=== PATIENT | female | born 1955 | race Caucasian/White ===

== ENCOUNTER 2020-09-01 21:38 | Inpatient (IN) ==
[2020-09-01] MEDS ORDERED: DEXAMETHASONE SODIUM PHOSP/PF 10 MG/ML VIAL IV ONE (21:58)
[2020-09-01] MEDS ORDERED: cefTRIAXone SODIUM 1,000 MG/100 ML BAG IV ONE (22:02)
[2020-09-01] MEDS ORDERED: ACETAMINOPHEN 325 MG TABLET PO ONE (22:05)
--- NOTE | 2020-09-01 22:13 | ERNOTE ---
Dyspnea - Date Date of Service: 09/01/20 - General Presenting Symptoms: shortness of breath Time Seen by Provider: 09/01/20 21:49 Source: patient, EMS Exam Limitations: no limitations - Immun/Allergies/Home Medications Immunizations: IMMUNIZATION HX Immunizations Up to Date Yes History of Influenza Vaccine Yes Hx Pneumococcal Vaccination Yes Allergies/Adverse Reactions: Allergies No Known Allergies Allergy (Verified 09/01/20 21:48) Home Medications: HOME MEDICATIONS B-complex with vitamin C 1 cap PO DAILY 08/04/18 [Last Taken Unknown] acyclovir 400 mg tablet 400 mg PO BID 08/04/18 [Last Taken 11/22/18] cholecalciferol (vitamin D3) 25 mcg (1,000 unit) capsule 1,000 unit PO DAILY 08/04/18 [Last Taken 11/22/18] cyanocobalamin (vitamin B-12) 1,000 mcg capsule 1,000 mcg PO DAILY 08/04/18 [Last Taken 11/22/18] magnesium oxide 500 mg PO DAILY tab 08/04/18 [Last Taken 11/22/18] fenofibrate 160 mg tablet 160 mg PO DAILY #90 tab 06/22/20 [Last Taken Unknown] insulin aspart U-100 100 unit/mL (3 mL) subcutaneous pen See Rx Instructions SUBCUT AC #15 ml 08/10/20 [Last Taken Unknown] insulin glargine 100 unit/mL (3 mL) subcutaneous pen 30 unit SUBCUT BID #15 ml 08/10/20 [Last Taken Unknown] levothyroxine 50 mcg capsule 50 mcg PO DAILY #30 cap 08/10/20 [Last Taken Unknown] lisinopril 40 mg tablet 40 mg PO BID #180 tab 08/10/20 [Last Taken Unknown] apixaban 2.5 mg tablet 2.5 mg PO BID tab 08/24/20 [Last Taken Unknown] lenalidomide 15 mg capsule 15 mg PO DAILY 08/24/20 [Last Taken Unknown] metformin 500 mg tablet 500 mg PO BID #180 tab 08/27/20 [Last Taken Unknown] Diltiazem HCl [Tiazac] 240 mg PO DAILY 09/02/20 [Last Taken Unknown] - History of Present Illness Narrative: Patient is a 65-year-old female that presents to the emergency department with a 1 week history of shortness of breath associated with hemoptysis. Patient tested Covid +1-week ago. Patient states her symptoms started the day prior to testing. Patient has history of diabetes, multiple myeloma, hypertension and currently is on apixaban. Date (Duration): 08/23/20 Severity: severe Treatment ROUTE DELIVERER: oxygen Initiating event: Reports: upper resp illness Frequency of episodes: Reports: no prior episodes Modifying Factors - (Improves): Reports: rest Modifying Factors (Worsens): Reports: lying down Associated Symptoms-Dyspnea: Reports: fever/chills, cough, weakness Review of Systems - Review of Systems Constitutional: Present: fever EYE: Present: no symptoms reported ENT: Present: no symptoms reported Respiratory: Present: shortness of breath, cough Cardiology: Present: no symptoms reported Gastrointestinal/Abdominal: Present: no symptoms reported Genitourinary: Present: no symptoms reported Musculoskeletal: Present: no symptoms reported Skin: Present: no symptoms reported Neurological: Present: no symptoms reported Endocrine: Present: no symptoms reported Hematologic/Lymphatic: Present: no symptoms reported Psych: Present: no symptoms reported All Other Systems: All systems neg except as marked Medical History (Last Reviewed 09/01/20 @ 22:06 by Caty Narayanan MD) HTN (hypertension) (Chronic) Onset Date: Unknown Hypercholesterolemia (Chronic) Onset Date: Unknown GERD (gastroesophageal reflux disease) (Chronic) Onset Date: Unknown Diabetes (Chronic) Onset Date: ~08/2006 Anxiety (Chronic) Onset Date: 10/02/11 Aphthous ulcer Onset Date: ~1999 Back pain Onset Date: Unknown Calcaneal fracture Onset Date: ~2000 Eczema Onset Date: Unknown Fatigue Onset Date: Unknown Glucose intolerance Onset Date: Unknown Headache Onset Date: Unknown Multiple myeloma Onset Date: Unknown Neck pain Onset Date: Unknown Proteinuria Onset Date: Unknown Surgical History: Surgical History (Last Reviewed 09/01/20 @ 22:06 by Caty Narayanan MD) History of bone marrow biopsy Onset Date: 06/09/17 History of breast biopsy Onset Date: 01/17/15 stereotactic bx left breast-fibrocystic changes. History of endometrial biopsy Onset Date: 09/01/06 [place] History of esophagogastroduodenoscopy (EGD) Onset Date: 03/01/19 03/01/19 Dr. Hess, [facility]-mild chronic inflammation, negative H.pylori. History of total abdominal hysterectomy and bilateral salpingo-oophorectomy Onset Date: 09/04/06 [place] Hx of cholecystectomy Onset Date: ~1975 open Hx of colonoscopy Onset Date: 03/01/19 08/06/07 [place]-normal. 11/23/18 [place]-diverticulosis, external hemorrhoids. Large ascending colon polyp, unable to remove. Refer to [facility]. 03/01/19 Dr. Hess, [facility]-tubulovillous adenoma, submucosal lipoma. Recheck 1 yr. Hx of tonsillectomy Onset Date: ~1970 Family History: Family History (Last Reviewed 09/01/20 @ 22:07 by Caty Narayanan MD) Mother , age 65-unsure of cause CVA (cerebral vascular accident) Diabetes Father , age 57-MD Myocardial infarction CAD (coronary artery disease) Hypertension Sister , age 59-renal cell ca Diabetes Cancer renal cell ca-dx age 59 Sister , age 65-COPD COPD (chronic obstructive pulmonary disease) Brother Alive and well 1 brother Heart disease 1 brother-bypass Uncle Cancer paternal-uncle Social History: (Last Reviewed 09/01/20 @ 22:07 by Caty Narayanan MD) Social History: Marital status: / lives independently: Yes household members: none number of children: 1 current occupational status: retired current occupation: homemaker since 2007; 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 Highest level of school completed/degree received: Associate degree: academi Service: No Tobacco: Smoking Status: Never smoker Alcohol: alcohol intake: former details: Some day - Occasionally Substance Use: substance use type: does not use Dietary Habits: caffeine: Yes caffeine comment: Every day - 60 oz pop/tea Personal Safety: victim of physical abuse: No victim of emotional abuse: No Physical Exam - Physical Exam General Appearance: Present: moderate distress Head Exam: Present: normal inspection Eye Exam: Normal inspection: bilateral, PERRL: bilateral, EOMI: bilateral Ears, Nose, Throat: Present: normal ENT inspection Neck: Present: normal inspection Respiratory: Present: respiratory distress, rales Cardiovascular/Chest: Present: regular rate, rhythm, no murmur, normal peripheral pulses Peripheral Pulses: N=norm/S=strong/W=weak/B=bound/A=absent: Radial (R): Normal, Radial (L): Normal, Dorsalis-pedis (R): Normal, Dorsalis-pedis (L): Normal Gastrointestinal/Abdominal: Present: normal bowel sounds, nontender Back Exam: Present: normal inspection Extremity Exam: Present: normal inspection Neurological Exam: Present: alert, oriented, normal mood/affect, no motor/sensory deficits Skin Exam: Present: normal color, warm/dry Lymphatic Exam: Present: no adenopathy Progress - Vital Signs Vital Signs: Vital Signs 09/01/20 21:42 Temperature 38.1 C H Pulse Rate 119 H Respiratory Rate 39 H Blood Pressure 155/75 H O2 Sat by Pulse Oximetry 74 L - EKG EKG #1 EKG read: Interp. by ma - EKG demonstrates sinus tachycardia with a rate of 103 with moderate intraventricular conduction delay no acute changes are appreciated. - X-Ray X-Ray #1 X-Ray: chest - Bilateral extensive fluffy infiltrates. Interpretation: Interp. by ma - CT/Ultrasound CT/Ultrasound Narrative: CT does not reveal a pulmonary embolus. Multifocal bilateral infiltrates are present. Mediastinal lymphadenopathy is noted. - Progress/Reassessment Chief Complaint: Dyspnea Progress:: Improved - Transition from high flow to CPAP Plan - Plan Plan: Patient tested positive for Covid 1 week ago. Patient has progressive shortness of breath and complains of coughing up blood. Patient states typically the blood is noted in the morning. Patient states over the last 2 days progressive worsening of shortness of breath. Patient presents per EMS. Patient requires O2 supplement per nasal cannula to maintain pulse ox of 90%. Blood cultures are obtained and patient is started on azithromycin and Rocephin. Decadron 10 mg IV is started. Pending chest x-ray, blood gases, troponin, D-dimer, CBC, chemistry, and lactic acid and BNP. Ferritin is pending D-dimer is elevated and CT rule out PE is obtained. BNP is greater than 3000 and troponin is elevated at 0.130. Patient is given Lasix 60 mg IV. initially considered BiPaP .however blood gases demonstrated normal PCO2. Patient placed on CPAP at 15 and O2 of 40%. Remdisivir criteria was reviewed with infectious disease and patient does not meet criteria by dates or O2 requirement. Patient is limited resuscitation and does not want to be intubated. Case is discussed with business integration analyst FP Dr. Sifuentes for admission. Troponin is unchanged. Initially 0.130 and repeat is 0.129. Lactic acid is 1.2. Patient is tolerating CPAP of 15 with O2 45%. Patient is alert and oriented and follows commands without difficulty. Patient is tolerating the CPAP without difficulty. Departure Clinical Impression: COVID-19 determined by clinical diagnostic criteria, CHF (congestive heart failure), History of diabetes mellitus, History of multiple myeloma, Anemia, Leukopenia - Departure Disposition: Short Term Hospital Inpatient Condition: Fair Referrals: Dudley Ramirez MD [Primary Care Provider] -
[2020-09-01] MEDS ORDERED: AZITHROMYCIN 500 MG in DEXTROSE 5 % IN WATER 250 ML IV ONE ×2 (22:30)
[2020-09-01 22:33] LABS: Hematocrit 32.5 % (37.0-47.0); Hemoglobin 10.9 gm/dL (12.5-16.0); Mean Cell Volume 101.6 fl (78-100); Mean Corpuscular Hemoglobin 34.1 pg (27-31); Mean Corpuscular Hgb Conc 33.5 g/dl (32-36); Mean Platelet Volume 10.5 fl (8-12.5); Platelet Count 135 K/mm3 (150-450); Red Cell Distribution Width 13.6 % (11.5-14.0); White Blood Count 2.7 K/mm3 (4.0-10.5)
[2020-09-01] MEDS ORDERED: NORMAL SALINE 500 ML IV ONE (22:38)
[2020-09-01 22:44] LABS: INR 1.16 INR (0.92-1.08)
[2020-09-01 22:45] LABS: Total Cells Counted 100
[2020-09-01 22:56] LABS: Atypical (Reactive) Lymph 7 % (0-2); Band 9 % (0-2.0); Lymphocyte 18 % (20-51); Monocyte 11 % (0-9); Neutrophil 55 % (42-75); Neutrophil # 1.5 K/mm3 (1.3-6.0); Platelet Estimate Normal (NORMAL); RBC Morphology Normal (NORMAL)
[2020-09-01 22:57] LABS: Albumin * 2.5 gm/dl (3.4-5.0); Anion Gap 16.4 mmol/L (6.8-13.8); BUN/Creatinine Ratio 16.1 (9.0-21.6); Bilirubin, Total 0.6 mg/dL (0.0-1.1); Calcium * 8.1 mg/dL (7.9-10.9); Carbon Dioxide 25.8 mmol/L (24-32.6); Potassium 4.2 mmol/L (3.4-4.6); Total Protein 6.6 gm/dL (6.2-8.2)
[2020-09-01 22:59] LABS: Troponin I 0.13 ng/mL (0.00-0.10)
[2020-09-01 23:06] LABS: Urine Bilirubin 3 mg/dl (NEGATIVE); Urine Blood Negative /ul (NEGATIVE); Urine Ketone 15 mg/dL (NEGATIVE); Urine Nitrite Negative (NEGATIVE); Urine Protein 100 mg/dL (NEGATIVE); Urine Specific Gravity 1.025 SP.GR. (1.005-1.010); Urine Urobilinogen Normal (NORMAL); Urine pH 5.5 pH (5.0-7.0)
[2020-09-01 23:09] LABS: Urine Appearance Clear (CLEAR); Urine Color Yellow
[2020-09-01 23:10] LABS: Urine Bacteria None Seen; Urine RBC None Seen /hpf (0-5); Urine WBC None Seen /hpf (0-5)
[2020-09-01] MEDS ORDERED: ONDANSETRON HCL/PF 2 MG/ML VIAL IV ONE (23:32)
[2020-09-01] MEDS ORDERED: ONDANSETRON HCL/PF 2 MG/ML VIAL ONE (23:33)
[2020-09-01] MEDS ORDERED: FUROSEMIDE 10 MG/ML VIAL IV ONE (23:50)
[2020-09-02] MEDS ORDERED: INSULIN REGULAR, HUMAN 100 UNITS/ML VIAL SC ONE ×2 (00:20→08:40)
[2020-09-02] MEDS ORDERED: INSULIN REGULAR, HUMAN 100 UNITS/ML VIAL IV ONE (00:46)
[2020-09-02] MEDS ORDERED: ENOXAPARIN SODIUM 40 MG/0.4 ML SYRG SC SCH (08:45)
[2020-09-02] MEDS ORDERED: ACETAMINOPHEN 325 MG TABLET PO PRN (08:46)
[2020-09-02] MEDS ORDERED: guaiFENesin/DEXTROMETHORPHAN SYRUP PO PRN (08:47)
[2020-09-02] MEDS: INSULIN GLARGINE,HUM.REC.ANLOG 100 UNITS/ML VIAL SC SCH ×2 (09:34→20:37)
[2020-09-02] MEDS: APIXABAN 2.5 MG TABLET PO SCH ×2 (09:35→20:28)
[2020-09-02] MEDS: FENOFIBRATE,MICRONIZED 134 MG CAPSULE PO SCH (09:36)
[2020-09-02] MEDS: metFORMIN HCL 500 MG TABLET PO SCH ×2 (09:36→17:20)
[2020-09-02] MEDS: DILTIAZEM HCL 240 MG CAP.SR.24H PO SCH (09:37)
[2020-09-02] MEDS: MAGNESIUM OXIDE 400 MG TABLET PO SCH (09:37)
[2020-09-02] MEDS: ACYCLOVIR 200 MG CAPSULE PO SCH ×2 (09:37→20:33)
[2020-09-02] MEDS: LEVOTHYROXINE SODIUM 50 MCG TABLET PO SCH (09:37)
[2020-09-02] MEDS: FUROSEMIDE 10 MG/ML VIAL IV SCH ×2 (09:38→20:30)
[2020-09-02] MEDS: LISINOPRIL 40 MG TABLET PO SCH ×2 (09:47→20:35)
[2020-09-02] MEDS: CYANOCOBALAMIN 1,000 MCG TABLET PO SCH (09:47)
[2020-09-02] MEDS: VITAMIN B COMP W-C 1 TAB TABLET PO SCH (09:47)
[2020-09-02] MEDS: CHOLECALCIFEROL 1,000 UNIT CAPSULE PO SCH (09:47)
[2020-09-02] MEDS: ALBUTEROL SULFATE/IPRATROPIUM 3 ML NEBU IH SCH ×4 (10:00→22:00)
[2020-09-02] MEDS: METHYLPREDNISOLONE SOD SUCC/PF 125 MG/2 ML VIAL IV SCH ×3 (10:41→20:36)
[2020-09-02] MEDS ORDERED: INSULIN LISPRO 100 UNITS/ML VIAL SC SCH (12:00)
--- NOTE | 2020-09-02 14:16 | HP ---
Chief Complaint - Chief Complaint Date of Service: 09/02/20 Time of Service: 13:59 Chief Complaint: I have trouble breathing History of Present Illness: 65-year-old female with past medical history of CHF, multiple myeloma, hypertension, obesity, hyperlipidemia, type 2 diabetes, was brought to the ER by EMS for evaluation of worsening dyspnea cough and hemoptysis of several days duration. The patient reports becoming ill about 8 days ago when she developed a cough and chest congestion, she progressively got worse and subsequently developed shortness of breath even at rest. Patient was tested for COVID-19 8 days ago and was placed in isolation at home for her to recuperate, however she became alarmed with her symptoms worsened and it became difficult for her to drive breath. Patient denies any history of respiratory issues or ever having similar symptoms in the past. Once in the ER she underwent a work-up that revealed an elevated BNP which would indicate a decompensation of her CHF, and she was also found to have elevated troponin which has now resolved. EKG was negative for any ischemic changes or signs of RI, and was only significant for sinus tachycardia. ACS was unlikely and the elevated troponin could be attributed to acute illness caused by the COVID-19 virus. The patient denies any chest pain or dizziness and says her biggest concern was her shortness of breath. Chest x-ray revealed diffuse pulmonary infiltrate and groundglass opacities which is common in COVID-19. The patient was placed on a nonrebreather mask but had to be upgraded to a BiPAP and subsequently a CPAP which she is tolerating currently without any issues. Once in the SCU ABG revealed improvement after she was treated with IV Lasix, breathing treatments, and IV steroids. We will keep the patient in the ICU for close monitoring and treatment for COVID-19 pneumonia. Given the duration of the patient's symptoms the patient did not qualify for remdesivir so we will treat her with other alternatives. She is currently on Eliquis per the orders of her oncologist who is treating her multiple myeloma, we will keep her on the medication during the hospitalization. Medical History (Last Reviewed 09/02/20 @ 02:26 by Aixa Gonzales RN) HTN (hypertension) (Chronic) Onset Date: Unknown Hypercholesterolemia (Chronic) Onset Date: Unknown GERD (gastroesophageal reflux disease) (Chronic) Onset Date: Unknown Diabetes (Chronic) Onset Date: ~08/2006 Anxiety (Chronic) Onset Date: 10/02/11 Aphthous ulcer Onset Date: ~1999 Back pain Onset Date: Unknown Calcaneal fracture Onset Date: ~2000 Eczema Onset Date: Unknown Fatigue Onset Date: Unknown Glucose intolerance Onset Date: Unknown Headache Onset Date: Unknown Multiple myeloma Onset Date: Unknown Neck pain Onset Date: Unknown Proteinuria Onset Date: Unknown Surgical History: Surgical History (Last Reviewed 09/02/20 @ 02:26 by Aixa Gonzales RN) History of bone marrow biopsy Onset Date: 06/09/17 History of breast biopsy Onset Date: 01/17/15 stereotactic bx left breast-fibrocystic changes. History of endometrial biopsy Onset Date: 09/01/06 [place] History of esophagogastroduodenoscopy (EGD) Onset Date: 03/01/19 03/01/19 Dr. Hess, [facility]-mild chronic inflammation, negative H.pylori. History of total abdominal hysterectomy and bilateral salpingo-oophorectomy Onset Date: 09/04/06 [place] Hx of cholecystectomy Onset Date: ~1975 open Hx of colonoscopy Onset Date: 03/01/19 08/06/07 [place]-normal. 11/23/18 [place]-diverticulosis, external hemorrhoids. Large ascending colon polyp, unable to remove. Refer to [facility]. 03/01/19 Dr. Hess, [facility]-tubulovillous adenoma, submucosal lipoma. Recheck 1 yr. Hx of tonsillectomy Onset Date: ~1970 Family History: Family History (Last Reviewed 09/02/20 @ 02:27 by Aixa Gonzales RN) Mother , age 65-unsure of cause CVA (cerebral vascular accident) Diabetes Father , age 57-[place] Myocardial infarction CAD (coronary artery disease) Hypertension Sister , age 59-renal cell ca Diabetes Cancer renal cell ca-dx age 59 Sister , age 65-COPD COPD (chronic obstructive pulmonary disease) Brother Alive and well 1 brother Heart disease 1 brother-bypass Uncle Cancer paternal-uncle Social History: (Last Reviewed 09/02/20 @ 02:28 by Aixa Gonzales RN) Social History: Marital status: / lives independently: Yes household members: none number of children: 1 current occupational status: retired current occupation: homemaker since 2007; 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 Highest level of school completed/degree received: Associate degree: academi Service: No Tobacco: Smoking Status: Never smoker Alcohol: alcohol intake: former details: Some day - Occasionally Substance Use: substance use type: does not use Dietary Habits: caffeine: Yes caffeine comment: Every day - 60 oz pop/tea Personal Safety: victim of physical abuse: No victim of emotional abuse: No Peds Patient Hx - Developmental: No Pertinent Hx Peds Patient Hx - Medical: No Pertinent Hx Peds Patient Hx - Cardiac/Respiratory: No Pertinent Hx Peds Patient Hx - Surgical: No Surgical History Review Of Systems (GEN) - Review of Systems Generalized/Overall Review: Present: Weakness EENTM: Present: No Symptoms Reported Respiratory: Present: Cough, Shortness of Breath Cardiac: Present: No Symptoms Reported Abdominal: Present: No Symptoms Reported Genitourinary: Present: No Symptoms Reported Musculoskeletal: Present: No Symptoms Reported Neurological: Present: No Symptoms Reported Skin: Present: No Symptoms Reported Endocrine: Present: No Symptoms Reported Immunizations: IMMUNIZATION HX Immunizations Up to Date Yes History of Influenza Vaccine Yes Hx Pneumococcal Vaccination Yes Allergies/Adverse Reactions: Allergies Allergy/AdvReac Type Severity Reaction Status Date / Time No Known Allergies Allergy Verified 09/01/20 21:48 Home Medications: HOME MEDICATIONS B-complex with vitamin C 1 cap PO DAILY 08/04/18 [Last Taken 09/01/20 09:00] acyclovir 400 mg tablet 400 mg PO BID 08/04/18 [Last Taken 09/01/20 09:00] cholecalciferol (vitamin D3) 25 mcg (1,000 unit) capsule 1,000 unit PO DAILY 08/04/18 [Last Taken 09/01/20 09:00] cyanocobalamin (vitamin B-12) 1,000 mcg capsule 1,000 mcg PO DAILY 08/04/18 [Last Taken 09/01/20 09:00] magnesium oxide 500 mg PO DAILY tab 08/04/18 [Last Taken 09/01/20 09:00] fenofibrate 160 mg tablet 160 mg PO DAILY #90 tab 06/22/20 [Last Taken 09/01/20 09:00] insulin aspart U-100 100 unit/mL (3 mL) subcutaneous pen See Rx Instructions SUBCUT AC #15 ml 08/10/20 [Last Taken 09/01/20 09:00] insulin glargine 100 unit/mL (3 mL) subcutaneous pen 30 unit SUBCUT BID #15 ml 08/10/20 [Last Taken 09/01/20 09:00] levothyroxine 50 mcg capsule 50 mcg PO DAILY #30 cap 08/10/20 [Last Taken 09/01/20 09:00] lisinopril 40 mg tablet 40 mg PO BID #180 tab 08/10/20 [Last Taken 09/01/20 09:00] apixaban 2.5 mg tablet 2.5 mg PO BID tab 08/24/20 [Last Taken 09/01/20 09:00] lenalidomide 15 mg capsule 15 mg PO DAILY 08/24/20 [Last Taken 09/01/20 09:00] metformin 500 mg tablet 500 mg PO BID #180 tab 08/27/20 [Last Taken Unknown] Diltiazem HCl [Tiazac] 240 mg PO DAILY 09/02/20 [Last Taken 09/01/20 09:00] Exam - Exam Vital Signs: Vital Signs - Last Taken Temp 36.5 C 09/02/20 11:14 Pulse 95 09/02/20 12:30 Resp 34 H 09/02/20 12:30 BP 144/66 09/02/20 11:14 Pulse Ox 95 09/02/20 12:30 Constitutional: Present: Alert, Oriented x3, Cooperative, Well developed, Well nourished, No distress, Morbidly obese ENT Exam: Present: normal ENT inspection, hearing grossly normal, pharynx normal Eye Exam: bilateral eye: normal inspection, PERRL, EOMI Neck: Present: non-tender, full range of motion, supple, normal inspection, trachea midline Back Exam: Present: normal inspection, no CVA tenderness, no vertebral tenderness Breasts: Present: Exam deferred, Nontender Respiratory: Present: respiratory distress, decreased breath sounds, accessory muscle use, crackles - Diffuse crackles bilaterally Cardiovascular/Chest: Present: normal peripheral pulses, regular rate, rhythm, no chest tenderness, no gallop, no JVD, no murmur, no rub Abdomen: Present: Normal bowel sounds, soft, nontender, nondistended, no rebound tenderness, no hepatospenomegaly, no masses, obese /Rectal: Present: Exam deferred Extremity: Present: normal range of motion, non-tender, normal inspection, no pedal edema, no calf tenderness, normal capillary refill, pelvis stable Skin Exam: Present: normal color, warm/dry, no cyanosis Lymphatic: Present: no adenopathy Neurologic: Present: bi tri operator II-XII nml as tested, no motor/sensory deficits, alert, oriented x 3 Appearance: Present: appropriate appearance, appropriate insight, neat, no memory impairment Eye contact: Present: cooperative, good eye contact, normal speech Thoughts: Present: normal thought pattern, no apparent hallucination Diagnostic Studies: Abnormal Lab Results 09/01/20 09/01/20 09/01/20 Range/Units 22:15 22:15 22:15 WBC 2.7 L (4.0-10.5) K/mm3 RBC 3.20 L (4.2-5.4) M/mm3 Hgb 10.9 L (12.5-16.0) gm/dL Hct 32.5 L (37.0-47.0) % MCV 101.6 H (78-100) fl MCH 34.1 H (27-31) pg Plt Count 135 L (150-450) K/mm3 Band Neuts % (Manual) 9 H (0-2.0) % Lymphocytes % (Manual) 18 L (20-51) % Monocytes % (Manual) 11 H (0-9) % Lymphocytes # (Manual) 0.5 L (1.5-3.5) k/mm3 Atypic/Reactive Lymphs 7 H (0-2) % ESR (0-15) mm/hr PT 12.0 H (9.1-10.7) Seconds INR (Anticoag Therapy) 1.16 H (0.92-1.08) INR D-Dimer (0.19-0.49) ug/mL pCO2 (32.0-45.0) mmHg pO2 (83.0-108.0) mmHg HCO3 (21.0-28.0) mmol/L Total CO2 (19.0-24.0) mmol/L Base Excess (-2.0-3.0) mmol/L ABG O2 Sat (Measured) (94.0-98.0) % Sodium 131 L (132-142) mmol/L Chloride 93 L (97-106) mmol/L Anion Gap 16.4 H (6.8-13.8) mmol/L Est GFR (Non-Af Amer) 52 L D (60-130) mL/min Random Glucose 370 H (70-110) mg/dL Ferritin 545 H (8-252) ng/mL Lactate Dehydrogenase 388 H (81-234) U/L Troponin I 0.130 H* (0.00-0.10) ng/mL B-Natriuretic Peptide 3800 H (5-205) pg/mL Albumin 2.5 L (3.4-5.0) gm/dl Urine Protein (NEGATIVE) mg/dL Urine Glucose (UA) (NEGATIVE) mg/dL Urine Bilirubin (NEGATIVE) mg/dl 09/01/20 09/01/20 09/01/20 Range/Units 22:15 22:15 22:20 WBC (4.0-10.5) K/mm3 RBC (4.2-5.4) M/mm3 Hgb (12.5-16.0) gm/dL Hct (37.0-47.0) % MCV (78-100) fl MCH (27-31) pg Plt Count (150-450) K/mm3 Band Neuts % (Manual) (0-2.0) % Lymphocytes % (Manual) (20-51) % Monocytes % (Manual) (0-9) % Lymphocytes # (Manual) (1.5-3.5) k/mm3 Atypic/Reactive Lymphs (0-2) % ESR 107 H (0-15) mm/hr PT (9.1-10.7) Seconds INR (Anticoag Therapy) (0.92-1.08) INR D-Dimer 1.08 H (0.19-0.49) ug/mL pCO2 (32.0-45.0) mmHg pO2 53.6 L (83.0-108.0) mmHg HCO3 (21.0-28.0) mmol/L Total CO2 24.6 H (19.0-24.0) mmol/L Base Excess (-2.0-3.0) mmol/L ABG O2 Sat (Measured) 87.8 L (94.0-98.0) % Sodium (132-142) mmol/L Chloride (97-106) mmol/L Anion Gap (6.8-13.8) mmol/L Est GFR (Non-Af Amer) (60-130) mL/min Random Glucose (70-110) mg/dL Ferritin (8-252) ng/mL Lactate Dehydrogenase (81-234) U/L Troponin I (0.00-0.10) ng/mL B-Natriuretic Peptide (5-205) pg/mL Albumin (3.4-5.0) gm/dl Urine Protein (NEGATIVE) mg/dL Urine Glucose (UA) (NEGATIVE) mg/dL Urine Bilirubin (NEGATIVE) mg/dl 09/01/20 09/02/20 09/02/20 Range/Units 22:58 00:55 09:18 WBC (4.0-10.5) K/mm3 RBC (4.2-5.4) M/mm3 Hgb (12.5-16.0) gm/dL Hct (37.0-47.0) % MCV (78-100) fl MCH (27-31) pg Plt Count (150-450) K/mm3 Band Neuts % (Manual) (0-2.0) % Lymphocytes % (Manual) (20-51) % Monocytes % (Manual) (0-9) % Lymphocytes # (Manual) (1.5-3.5) k/mm3 Atypic/Reactive Lymphs (0-2) % ESR (0-15) mm/hr PT (9.1-10.7) Seconds INR (Anticoag Therapy) (0.92-1.08) INR D-Dimer (0.19-0.49) ug/mL pCO2 53.6 H (32.0-45.0) mmHg pO2 56.4 L (83.0-108.0) mmHg HCO3 29.7 H (21.0-28.0) mmol/L Total CO2 31.3 H (19.0-24.0) mmol/L Base Excess 3.3 H (-2.0-3.0) mmol/L ABG O2 Sat (Measured) 87.8 L (94.0-98.0) % Sodium (132-142) mmol/L Chloride (97-106) mmol/L Anion Gap (6.8-13.8) mmol/L Est GFR (Non-Af Amer) (60-130) mL/min Random Glucose (70-110) mg/dL Ferritin (8-252) ng/mL Lactate Dehydrogenase (81-234) U/L Troponin I 0.129 H* (0.00-0.10) ng/mL B-Natriuretic Peptide (5-205) pg/mL Albumin (3.4-5.0) gm/dl Urine Protein 100 H (NEGATIVE) mg/dL Urine Glucose (UA) >=1000 H (NEGATIVE) mg/dL Urine Bilirubin 3 H (NEGATIVE) mg/dl 09/02/20 Range/Units 12:20 WBC (4.0-10.5) K/mm3 RBC (4.2-5.4) M/mm3 Hgb (12.5-16.0) gm/dL Hct (37.0-47.0) % MCV (78-100) fl MCH (27-31) pg Plt Count (150-450) K/mm3 Band Neuts % (Manual) (0-2.0) % Lymphocytes % (Manual) (20-51) % Monocytes % (Manual) (0-9) % Lymphocytes # (Manual) (1.5-3.5) k/mm3 Atypic/Reactive Lymphs (0-2) % ESR (0-15) mm/hr PT (9.1-10.7) Seconds INR (Anticoag Therapy) (0.92-1.08) INR D-Dimer (0.19-0.49) ug/mL pCO2 50.2 H (32.0-45.0) mmHg pO2 59.4 L (83.0-108.0) mmHg HCO3 30.3 H (21.0-28.0) mmol/L Total CO2 31.8 H (19.0-24.0) mmol/L Base Excess 4.5 H (-2.0-3.0) mmol/L ABG O2 Sat (Measured) 90.4 L (94.0-98.0) % Sodium (132-142) mmol/L Chloride (97-106) mmol/L Anion Gap (6.8-13.8) mmol/L Est GFR (Non-Af Amer) (60-130) mL/min Random Glucose (70-110) mg/dL Ferritin (8-252) ng/mL Lactate Dehydrogenase (81-234) U/L Troponin I (0.00-0.10) ng/mL B-Natriuretic Peptide (5-205) pg/mL Albumin (3.4-5.0) gm/dl Urine Protein (NEGATIVE) mg/dL Urine Glucose (UA) (NEGATIVE) mg/dL Urine Bilirubin (NEGATIVE) mg/dl Laboratory Results WBC 2.7 K/mm3 (4.0-10.5) L 09/01/20 22:15 RBC 3.20 M/mm3 (4.2-5.4) L 09/01/20 22:15 Hgb 10.9 gm/dL (12.5-16.0) L 09/01/20 22:15 Hct 32.5 % (37.0-47.0) L 09/01/20 22:15 MCV 101.6 fl (78-100) H 09/01/20 22:15 MCH 34.1 pg (27-31) H 09/01/20 22:15 MCHC 33.5 g/dl (32-36) 09/01/20 22:15 RDW 13.6 % (11.5-14.0) 09/01/20 22:15 Plt Count 135 K/mm3 (150-450) L 09/01/20 22:15 MPV 10.5 fl (8-12.5) 09/01/20 22:15 Neutrophils % (Manual) 55 % (42-75) 09/01/20 22:15 Band Neuts % (Manual) 9 % (0-2.0) H 09/01/20 22:15 Lymphocytes % (Manual) 18 % (20-51) L 09/01/20 22:15 Monocytes % (Manual) 11 % (0-9) H 09/01/20 22:15 Neutrophils # (Manual) 1.5 K/mm3 (1.3-6.0) 09/01/20 22:15 Lymphocytes # (Manual) 0.5 k/mm3 (1.5-3.5) L 09/01/20 22:15 Monocytes # (Manual) 0.3 k/mm3 (0.0-1.0) 09/01/20 22:15 Atypic/Reactive Lymphs 7 % (0-2) H 09/01/20 22:15 Platelet Estimate Normal (NORMAL) 09/01/20 22:15 RBC Morphology Normal (NORMAL) 09/01/20 22:15 ESR 107 mm/hr (0-15) H 09/01/20 22:15 PT 12.0 Seconds (9.1-10.7) H 09/01/20 22:15 INR (Anticoag Therapy) 1.16 INR (0.92-1.08) H 09/01/20 22:15 D-Dimer 1.08 ug/mL (0.19-0.49) H 09/01/20 22:15 pCO2 50.2 mmHg (32.0-45.0) H 09/02/20 12:20 pO2 59.4 mmHg (83.0-108.0) L 09/02/20 12:20 HCO3 30.3 mmol/L (21.0-28.0) H 09/02/20 12:20 Total CO2 31.8 mmol/L (19.0-24.0) H 09/02/20 12:20 Base Excess 4.5 mmol/L (-2.0-3.0) H 09/02/20 12:20 ABG pH 7.40 (7.35-7.45) 09/02/20 12:20 ABG O2 Sat (Measured) 90.4 % (94.0-98.0) L 09/02/20 12:20 Sodium 131 mmol/L (132-142) L 09/01/20 22:15 Plasma Sodium 135 mmol/L (130-142) 09/01/20 22:15 Potassium 4.2 mmol/L (3.4-4.6) 09/01/20 22:15 Chloride 93 mmol/L (97-106) L 09/01/20 22:15 Carbon Dioxide 25.8 mmol/L (24-32.6) 09/01/20 22:15 Anion Gap 16.4 mmol/L (6.8-13.8) H 09/01/20 22:15 BUN 18 mg/dL (3-23) 09/01/20 22:15 Creatinine 1.12 mg/dL (0.4-1.4) 09/01/20 22:15 Est GFR (Non-Af Amer) 52 mL/min (60-130) L D 09/01/20 22:15 BUN/Creatinine Ratio 16.1 (9.0-21.6) 09/01/20 22:15 Random Glucose 370 mg/dL (70-110) H 09/01/20 22:15 Lactic Acid, Venous 1.2 mmol/L (0.4-2.0) 09/01/20 22:15 Calcium 8.1 mg/dL (7.9-10.9) 09/01/20 22:15 Calcium Adj for Albumin 9.0 mg/dL (8.4-10.2) 09/01/20 22:15 Magnesium 2.0 mg/dL (1.2-2.8) 09/01/20 22:15 Ferritin 545 ng/mL (8-252) H 09/01/20 22:15 Total Bilirubin 0.6 mg/dL (0.0-1.1) 09/01/20 22:15 AST 47 U/L (0-48) 09/01/20 22:15 ALT 37 U/L (19-67) 09/01/20 22:15 Alkaline Phosphatase 57 U/L (50-170) 09/01/20 22:15 Lactate Dehydrogenase 388 U/L (81-234) H 09/01/20 22:15 Troponin I 0.067 ng/mL (0.00-0.10) 09/02/20 09:16 B-Natriuretic Peptide 3800 pg/mL (5-205) H 09/01/20 22:15 Total Protein 6.6 gm/dL (6.2-8.2) 09/01/20 22:15 Albumin 2.5 gm/dl (3.4-5.0) L 09/01/20 22:15 Urine Color Yellow 09/01/20 22:58 Urine Appearance Clear (CLEAR) 09/01/20 22:58 Urine pH 5.5 pH (5.0-7.0) 09/01/20 22:58 Ur Specific [place] 1.025 SP.GR. (1.005-1.010) 09/01/20 22:58 Urine Protein 100 mg/dL (NEGATIVE) H 09/01/20 22:58 Urine Glucose (UA) >=1000 mg/dL (NEGATIVE) H 09/01/20 22:58 Urine Ketones 15 mg/dL (NEGATIVE) 09/01/20 22:58 Urine Blood Negative /ul (NEGATIVE) 09/01/20 22:58 Urine Nitrate Negative (NEGATIVE) 09/01/20 22:58 Urine Bilirubin 3 mg/dl (NEGATIVE) H 09/01/20 22:58 Urine Urobilinogen Normal EU/dl (NORMAL) 02/13/21 22:58 Ur Leukocyte Esterase Negative /ul (NEGATIVE) 09/01/20 22:58 Urine RBC None seen /hpf (0-5) 09/01/20 22:58 Urine WBC None seen /hpf (0-5) 09/01/20 22:58 Ur Epithelial Cells 0-5 /hpf (0-5) 09/01/20 22:58 Urine Bacteria None seen (NONE) 09/01/20 22:58 Urine Culture Comments No culture indicated 09/01/20 22:58 Assessment/Plan - Narrative Narrative: Patient was evaluated medical chart was reviewed and decision to admit for acute respiratory failure due to COVID-19 pneumonia with hypoxia, decompensated CHF, dehydration, and LIZA was made. Patient is currently on a CPAP machine and maintaining saturation above 90%. Repeat ABG confirm improvement from her initial ABG so we will keep her on the CPAP for now. She informed me that she is a DNI but is okay with being resuscitated in the event that her heart were to stop. She will be treated with IV antibiotics, IV diuretics, IV steroids, and breathing treatments in order to treat her condition. We will continue to monitor the patient closely. - Assessment/Plan (1) LIZA (acute kidney injury) Problem: Acute (2) CHF (congestive heart failure) Problem: Acute (3) History of diabetes mellitus Problem: Acute (4) History of multiple myeloma Problem: Acute (5) Hypothyroidism Problem: Chronic Qualifiers: (6) Type II diabetes mellitus Problem: Chronic Qualifiers: (7) Multiple myeloma Problem: Chronic Qualifiers: (8) HTN (hypertension) Problem: Chronic Qualifiers: (9) Acute decompensated heart failure Problem: Acute (10) Respiratory failure Problem: Acute (11) Pneumonia due to COVID-19 virus Problem: Acute (12) Elevated troponin Problem: Acute
[2020-09-02] MEDS: INSULIN LISPRO 100 UNITS/ML VIAL SC SCH ×2 (14:45→17:20)
[2020-09-02] MEDS: PANTOPRAZOLE SODIUM 20 MG TABLET.DR PO SCH (20:33)
[2020-09-02] MEDS ORDERED: AZITHROMYCIN 500 MG in DEXTROSE 5 % IN WATER 250 ML IV SCH ×2 (22:00)
[2020-09-03] MEDS: ALBUTEROL SULFATE/IPRATROPIUM 3 ML NEBU IH SCH ×5 (02:10→18:01)
[2020-09-03] MEDS: METHYLPREDNISOLONE SOD SUCC/PF 125 MG/2 ML VIAL IV SCH ×3 (02:44→14:12)
[2020-09-03 06:31] LABS: Hematocrit 32.9 % (37.0-47.0); Hemoglobin 10.6 gm/dL (12.5-16.0); Mean Cell Volume 106.8 fl (78-100); Mean Corpuscular Hemoglobin 34.4 pg (27-31); Mean Corpuscular Hgb Conc 32.2 g/dl (32-36); Mean Platelet Volume 10.7 fl (8-12.5); Platelet Count 140 K/mm3 (150-450); Red Blood Count 3.08 M/mm3 (4.2-5.4); Red Cell Distribution Width 14.6 % (11.5-14.0); White Blood Count 4.2 K/mm3 (4.0-10.5)
[2020-09-03 06:39] LABS: Total Cells Counted 100
[2020-09-03 06:49] LABS: Albumin * 2.3 gm/dl (3.4-5.0); Anion Gap 17.9 mmol/L (6.8-13.8); BUN/Creatinine Ratio 26.6 (9.0-21.6); Bilirubin, Total 0.5 mg/dL (0.0-1.1); Ca. Corrected For Albumin 8.9 mg/dL (8.4-10.2); Calcium * 7.9 mg/dL (7.9-10.9); Carbon Dioxide 27.8 mmol/L (24-32.6); Potassium 4.7 mmol/L (3.4-4.6); Total Protein 6.8 gm/dL (6.2-8.2)
[2020-09-03 06:59] LABS: Atypical (Reactive) Lymph 3 % (0-2); Band 10 % (0-2.0); Lymphocyte 6 % (20-51); Monocyte 10 % (0-9); Neutrophil 71 % (42-75); Platelet Estimate Normal (NORMAL); RBC Morphology Normal (NORMAL)
[2020-09-03] MEDS: PANTOPRAZOLE SODIUM 20 MG TABLET.DR PO SCH (07:25)
[2020-09-03] MEDS: LEVOTHYROXINE SODIUM 50 MCG TABLET PO SCH (07:26)
[2020-09-03] MEDS: INSULIN LISPRO 100 UNITS/ML VIAL SC SCH ×4 (07:26→17:06)
[2020-09-03] MEDS: ACYCLOVIR 200 MG CAPSULE PO SCH (08:51)
[2020-09-03] MEDS: MAGNESIUM OXIDE 400 MG TABLET PO SCH (08:51)
[2020-09-03] MEDS: metFORMIN HCL 500 MG TABLET PO SCH ×2 (08:51→17:00)
[2020-09-03] MEDS: LISINOPRIL 40 MG TABLET PO SCH (08:51)
[2020-09-03] MEDS: VITAMIN B COMP W-C 1 TAB TABLET PO SCH (08:51)
[2020-09-03] MEDS: FENOFIBRATE,MICRONIZED 134 MG CAPSULE PO SCH (08:51)
[2020-09-03] MEDS: CHOLECALCIFEROL 1,000 UNIT CAPSULE PO SCH (08:51)
[2020-09-03] MEDS: CYANOCOBALAMIN 1,000 MCG TABLET PO SCH (08:51)
[2020-09-03] MEDS: APIXABAN 2.5 MG TABLET PO SCH (08:51)
[2020-09-03] MEDS: DILTIAZEM HCL 240 MG CAP.SR.24H PO SCH (08:52)
[2020-09-03] MEDS: FUROSEMIDE 10 MG/ML VIAL IV SCH (08:57)
[2020-09-03] MEDS: INSULIN GLARGINE,HUM.REC.ANLOG 100 UNITS/ML VIAL SC SCH (08:59)
--- NOTE | 2020-09-03 12:07 | PN ---
Subjective - Date and Time Seen Date: 09/03/20 Time: 11:59 Subjective Narrative: I feel better just still hard to breathe Objective Objective Narrative: 65-year-old female admitted for COVID-19 pneumonia, respiratory failure with hypoxia, and decompensated CHF was evaluated at bedside this morning was found to be afebrile and in no acute distress. However patient continues to be critically ill, still requiring a CPAP machine alternating with a high flow mask. Her oxygen saturation continues to be suboptimal despite regular doses of IV steroids and breathing treatments, auscultation continues to be positive for crackles bilaterally despite multiple doses of IV diuretics. He did however have adequate urine output, in fact the patient has lost 3 pounds of fluid in the past 24 hours so her fluid overload is improving. We will keep her on maintenance dose of diuretics to continue diuresing her and continue IV steroids to treat the inflammation of the lungs. Of note the patient was observed to have hemoptysis which she reports started ever since she became ill with Covid, she reports coughing of blood mostly in the mornings. She says about a teaspoon each time enough to fill of a tissue, this is further evidence of significant inflammation of the lungs so we will need to continue monitoring this closely. Aside from her respiratory issues the other concern is uncontrolled blood sugars most likely secondary to acute illness, we will optimize her insulin therapy and put her on a high dose insulin scale for better management of blood sugars. - Review of Systems Generalized/Overall Review: Reports: Weakness EENTM: Reports: No Symptoms Reported Respiratory: Reports: Cough, Shortness of Breath Cardiac: Reports: No Symptoms Reported Abdominal: Reports: No Symptoms Reported Genitourinary Symptoms: Reports: No Symptoms Reported Musculoskeletal Complaints: Reports: No Symptoms Reported Neurological: Reports: No Symptoms Reported Skin: Reports: No Symptoms Reported Endocrine: Reports: No Symptoms Reported - Vitals Vitals: Last Vital Signs Temp 36.5 C 09/03/20 10:00 Pulse 89 09/03/20 11:07 Resp 33 H 09/03/20 11:07 BP 132/64 09/03/20 10:00 Pulse Ox 92 L 09/03/20 11:07 - Abnormal Lab Findings Abnormal Lab Findings: Abnormal Lab Results 09/02/20 09/03/20 09/03/20 Range/Units 12:20 06:18 06:18 RBC 3.08 L (4.2-5.4) M/mm3 Hgb 10.6 L (12.5-16.0) gm/dL Hct 32.9 L (37.0-47.0) % MCV 106.8 H (78-100) fl MCH 34.4 H (27-31) pg RDW 14.6 H (11.5-14.0) % Plt Count 140 L (150-450) K/mm3 Band Neuts % (Manual) 10 H (0-2.0) % Lymphocytes % (Manual) 6 L (20-51) % Monocytes % (Manual) 10 H (0-9) % Lymphocytes # (Manual) 0.3 L (1.5-3.5) k/mm3 Atypic/Reactive Lymphs 3 H (0-2) % pCO2 50.2 H (32.0-45.0) mmHg pO2 59.4 L (83.0-108.0) mmHg HCO3 30.3 H (21.0-28.0) mmol/L Total CO2 31.8 H (19.0-24.0) mmol/L Base Excess 4.5 H (-2.0-3.0) mmol/L ABG O2 Sat (Measured) 90.4 L (94.0-98.0) % Potassium 4.7 H (3.4-4.6) mmol/L Chloride 94 L (97-106) mmol/L Anion Gap 17.9 H (6.8-13.8) mmol/L BUN 33 H D (3-23) mg/dL Est GFR (Non-Af Amer) 46 L (60-130) mL/min BUN/Creatinine Ratio 26.6 H (9.0-21.6) Random Glucose 497 H D (70-110) mg/dL Albumin 2.3 L (3.4-5.0) gm/dl - Exam Constitutional: Present: Alert, Oriented x3, Cooperative, Well developed, Mild distress, Morbidly obese ENT Exam: Present: normal ENT inspection, hearing grossly normal Neck: Present: non-tender, full range of motion, supple, normal inspection, trachea midline Breasts: Present: Exam deferred, Nontender Respiratory: Present: chest non-tender, no accessory muscle use, respiratory distress, crackles - Diffuse bilateral crackles Cardiovascular/Chest: Present: normal peripheral pulses, regular rate, rhythm, no chest tenderness, no edema, no gallop, no JVD, no murmur, no rub Abdomen: Present: Normal bowel sounds, soft, nontender, nondistended, no hepatospenomegaly, no masses, obese /Rectal: Present: Exam deferred Extremity: Present: normal range of motion, non-tender, normal inspection, no pedal edema, no calf tenderness, normal capillary refill, pelvis stable Skin Exam: Present: normal color, warm/dry, no cyanosis Lymphatic: Present: no adenopathy Neurologic: Present: guest services attendant II-XII nml as tested, no motor/sensory deficits, alert, normal mood/affect, oriented x 3 Appearance: Present: appropriate appearance, appropriate insight, neat, no memory impairment Eye contact: Present: cooperative, good eye contact, normal speech Thoughts: Present: normal thought pattern, no apparent hallucination Cauti Physician Documentation - Urinary Catheter Management Urethral (Magallon) Cath placed during this visit: Magallon catheter in place for input and output monitoring Urethral Indwelling: No Reason for Continuing Indwelling Catheter: ICU pt getting diuretics Date of Insertion: 09/01/20 Time of Insertion: 23:04 Assessment/Plan - Problems/Diagnosis (1) LIZA (acute kidney injury) Problem: Acute (2) CHF (congestive heart failure) Problem: Acute (3) History of diabetes mellitus Problem: Acute (4) History of multiple myeloma Problem: Acute (5) Hypothyroidism Problem: Chronic Qualifiers: (6) Type II diabetes mellitus Problem: Chronic Qualifiers: (7) Multiple myeloma Problem: Chronic Qualifiers: (8) HTN (hypertension) Problem: Chronic Qualifiers: (9) Acute decompensated heart failure Problem: Acute (10) Respiratory failure Problem: Acute (11) Pneumonia due to COVID-19 virus Problem: Acute (12) Elevated troponin Problem: Acute (13) Uncontrolled diabetes mellitus Problem: Acute
[2020-09-03] MEDS ORDERED: FUROSEMIDE 40 MG TABLET PO SCH (12:15)
--- NOTE | 2020-09-03 18:10 | DS ---
Transfer Discharge Summary - Diagnosis(s)/Problems (1) LIZA (acute kidney injury) Problem: Acute (2) CHF (congestive heart failure) Problem: Acute (3) History of diabetes mellitus Problem: Acute (4) History of multiple myeloma Problem: Acute (5) Hypothyroidism Problem: Chronic (6) Type II diabetes mellitus Problem: Chronic (7) Multiple myeloma Problem: Chronic (8) HTN (hypertension) Problem: Chronic (9) Acute decompensated heart failure Problem: Acute (10) Respiratory failure Problem: Acute (11) Pneumonia due to COVID-19 virus Problem: Acute (12) Elevated troponin Problem: Acute (13) Uncontrolled diabetes mellitus Problem: Acute - Course Description of Stay: 65 y/o female admitted for Covid 19 Pneumonia and respiratory failure, Hemoptysis, Decompensated CHF, LIZA, and uncontrolled DM2 has been getting progressively worse since being admitted to our facility. Patient has been treated with antibiotics, IV steroids, IV diuretics, breathing treatments, Insulin, and symptomatic medications but our efforts have not been successful at stabilizing her respiratory function. The patient is currently on a Bipap machine but is still having respiratory distress and Hypoxia. She was originally DNI status but this afternoon decided to switch to full code. Given her current condition, decision was made to transfer the patient to a higher level of care. She will be transferred to ICU at [facility]. She maintains stable vitals at the moment and is tolerating Bipap without any major issues. We will continue to monitor her until she is transported in an ambulance to [facility]. Procedures Performed: none - Results and Findings Results and Findings: Laboratory Results - last 24 hr 09/03/20 09/03/20 09/03/20 06:18 06:18 15:40 WBC 4.2 D RBC 3.08 L Hgb 10.6 L Hct 32.9 L MCV 106.8 H MCH 34.4 H MCHC 32.2 RDW 14.6 H Plt Count 140 L MPV 10.7 Neutrophils % (Manual) 71 Band Neuts % (Manual) 10 H Lymphocytes % (Manual) 6 L Monocytes % (Manual) 10 H Neutrophils # (Manual) 3.0 Lymphocytes # (Manual) 0.3 L Monocytes # (Manual) 0.4 Atypic/Reactive Lymphs 3 H Platelet Estimate Normal RBC Morphology Normal pCO2 69.1 H pO2 56.9 L HCO3 34.1 H Total CO2 36.2 H Base Excess 6.1 H ABG pH 7.31 L ABG O2 Sat (Measured) 85.9 L Sodium 135 Plasma Sodium 141 Potassium 4.7 H Chloride 94 L Carbon Dioxide 27.8 Anion Gap 17.9 H BUN 33 H D Creatinine 1.24 Est GFR (Non-Af Amer) 46 L BUN/Creatinine Ratio 26.6 H Random Glucose 497 H D Calcium 7.9 Calcium Adj for Albumin 8.9 Total Bilirubin 0.5 AST 40 ALT 35 Alkaline Phosphatase 62 Total Protein 6.8 Albumin 2.3 L 09/03/20 16:55 WBC RBC Hgb Hct MCV MCH MCHC RDW Plt Count MPV Neutrophils % (Manual) Band Neuts % (Manual) Lymphocytes % (Manual) Monocytes % (Manual) Neutrophils # (Manual) Lymphocytes # (Manual) Monocytes # (Manual) Atypic/Reactive Lymphs Platelet Estimate RBC Morphology pCO2 63.6 H pO2 73.2 L HCO3 33.4 H Total CO2 35.3 H Base Excess 6.1 H ABG pH 7.34 L ABG O2 Sat (Measured) 93.4 L Sodium Plasma Sodium Potassium Chloride Carbon Dioxide Anion Gap BUN Creatinine Est GFR (Non-Af Amer) BUN/Creatinine Ratio Random Glucose Calcium Calcium Adj for Albumin Total Bilirubin AST ALT Alkaline Phosphatase Total Protein Albumin - Medications Medications: Active Medications Acyclovir (Acyclovir 200 Mg Capsule) 400 mg PO BID JENNYFER Stop: 10/02/20 09:01 Last Admin: 09/03/20 08:51 Dose: 400 mg Documented by: Albuterol/Ipratropium (Albuterol Sulfate/Ipratropium 3 Ml Nebu) 3 ml IH Q4HRT JENNYFER Stop: 10/02/20 11:01 Last Admin: 09/03/20 14:15 Dose: 3 ml Documented by: Apixaban (Apixaban 2.5 Mg Tablet) 2.5 mg PO BID JENNYFER Stop: 10/02/20 09:01 Last Admin: 09/03/20 08:51 Dose: 2.5 mg Documented by: Cholecalciferol (Cholecalciferol 1,000 Unit Capsule) 1,000 unit PO DAILY JENNYFER Stop: 10/02/20 09:01 Last Admin: 09/03/20 08:51 Dose: 1,000 unit Documented by: Cyanocobalamin (Cyanocobalamin 1,000 Mcg Tablet) 1,000 mcg PO DAILY JENNYFER Stop: 10/02/20 09:01 Last Admin: 09/03/20 08:51 Dose: 1,000 mcg Documented by: Diltiazem HCl (Diltiazem Hcl 240 Mg Cap.Sr.24h) 240 mg PO DAILY [facility] Stop: 10/02/20 09:01 Last Admin: 09/03/20 08:52 Dose: 240 mg Documented by: Fenofibrate (Fenofibrate,Micronized 134 Mg Capsule) 134 mg PO DAILY [facility] Stop: 10/02/20 09:01 Last Admin: 09/03/20 08:51 Dose: 134 mg Documented by: Furosemide (Furosemide 40 Mg Tablet) 40 mg PO DAILY [facility] Stop: 10/03/20 12:16 Last Admin: 09/03/20 13:35 Dose: Not Given Documented by: Azithromycin 500 mg/ Dextrose/ (Water) 250 mls @ 250 mls/hr IV Q24H [facility]; Protocol Stop: 10/02/20 22:01 Last Infusion: 09/02/20 22:12 Dose: Infused Documented by: Insulin Human Lispro (Insulin Lispro 100 Units/Ml Vial) 0 units SC ACINS [facility]; Protocol Stop: 10/03/20 12:05 Last Admin: 09/03/20 17:06 Dose: 24 units Documented by: Levothyroxine Sodium (Levothyroxine Sodium 50 Mcg Tablet) 50 mcg PO DAILY@0700 [facility] Stop: 10/02/20 09:01 Last Admin: 09/03/20 07:26 Dose: 50 mcg Documented by: Lisinopril (Lisinopril 40 Mg Tablet) 40 mg PO BID [facility] Stop: 10/02/20 09:01 Last Admin: 09/03/20 08:51 Dose: 40 mg Documented by: Magnesium Oxide (Magnesium Oxide 400 Mg Tablet) 400 mg PO DAILY [facility] Stop: 10/02/20 09:01 Last Admin: 09/03/20 08:51 Dose: 400 mg Documented by: Metformin HCl (Metformin Hcl 500 Mg Tablet) 500 mg PO BIDWM [facility] Stop: 10/02/20 09:01 Last Admin: 09/03/20 17:00 Dose: Not Given Documented by: Methylprednisolone Sodium Succinate (Methylprednisolone Sod Succ/Pf 125 Mg/2 Ml Vial) 62.5 mg IV Q6H [facility] Stop: 10/02/20 09:01 Last Admin: 09/03/20 14:12 Dose: 62.5 mg Documented by: Lenalidomide [ Revlimid] 15 Mg Capsule 15 mg PO DAILY [facility] Stop: 10/02/20 09:01 Last Admin: 09/03/20 09:53 Dose: Not Given Documented by: Pantoprazole Sodium (Pantoprazole Sodium 20 Mg Tablet.) 20 mg PO BID@0700,2100 [facility] Stop: 10/02/20 21:01 Last Admin: 09/03/20 07:25 Dose: 20 mg Documented by: Vitamin B Complex/Vitamin C (Vitamin B Comp W-C 1 Tab Tablet) 1 tab PO DAILY [facility] Stop: 10/02/20 09:01 Last Admin: 09/03/20 08:51 Dose: 1 tab Documented by: Discontinued Medications Acetaminophen (Acetaminophen 325 Mg Tablet) 650 mg PO ONCE ONE Stop: 09/01/20 22:06 Last Admin: 09/01/20 22:15 Dose: 650 mg Documented by: Dexamethasone Sodium Phosphate (Dexamethasone Sodium Phosp/Pf 10 Mg/Ml Vial) 10 mg IV ONCE ONE Stop: 09/01/20 21:59 Last Admin: 09/01/20 22:15 Dose: 10 mg Documented by: Furosemide (Furosemide 10 Mg/Ml Vial) 60 mg IV ONCE ONE Stop: 09/01/20 23:51 Last Admin: 09/02/20 00:00 Dose: 60 mg Documented by: Furosemide (Furosemide 10 Mg/Ml Vial) 60 mg IV Q12H [facility] Stop: 09/03/20 09:01 Last Admin: 09/03/20 08:57 Dose: 60 mg Documented by: Ceftriaxone Sodium (Rocephin 1000 Mg Er Piggyback) 1,000 mg in 100 mls @ 200 mls/hr IV ONCE ONE Stop: 09/01/20 22:31 Last Infusion: 09/01/20 23:01 Dose: Infused Documented by: Azithromycin 500 mg/ Dextrose/ (Water) 250 mls @ 250 mls/hr IV ONCE ONE Stop: 09/01/20 23:29 Last Infusion: 09/01/20 23:45 Dose: Infused Documented by: Sodium Chloride (Sodium Chloride 0.9%) 500 mls @ 999 mls/hr IV .Q31M ONE Stop: 09/01/20 23:08 Last Infusion: 09/01/20 23:10 Dose: Infused Documented by: Insulin Glargine (Insulin Glargine,Hum.Rec.Anlog 100 Units/Ml Vial) 30 units SC BID [facility] Stop: 10/02/20 09:01 Last Admin: 09/03/20 08:59 Dose: 30 units Documented by: Insulin Human Lispro (Insulin Lispro 100 Units/Ml Vial) 0 units SC ACINS [facility]; Protocol Stop: 10/02/20 17:01 Last Admin: 09/03/20 12:26 Dose: Not Given Documented by: Insulin Human Regular (Insulin Regular, Human 100 Units/Ml Vial) 5 units SC ONCE ONE Stop: 09/02/20 00:21 Last Admin: 09/02/20 00:51 Dose: Not Given Documented by: Insulin Human Regular (Insulin Regular, Human 100 Units/Ml Vial) 5 units IV ONCE ONE Stop: 09/02/20 00:47 Last Admin: 09/02/20 00:50 Dose: 5 units Documented by: Insulin Human Regular (Insulin Regular, Human 100 Units/Ml Vial) 10 units SC ONCE ONE Stop: 09/02/20 08:41 Last Admin: 09/02/20 09:33 Dose: 10 units Documented by: Ondansetron HCl (Ondansetron Hcl/Pf 2 Mg/Ml Vial) 4 mg IV ONCE ONE Stop: 09/01/20 23:33 Last Admin: 09/01/20 23:35 Dose: 4 mg Documented by: - Disposition Disposition: Short Term Hospital Inpatient Condition: Serious Discharge Date: 09/03/20 Discharge Time: 18:10
[2020-09-03 19:19] VITALS: BP 125/53
[2020-09-03] MEDS ORDERED: INSULIN GLARGINE,HUM.REC.ANLOG 100 UNITS/ML VIAL SC SCH (21:00)
== END 2020-09-03 20:30 | disposition short-term general hospital (02) | DRG 177 ==
LOC: ER 21:38 → MS 09-02 01:25 → SCU 09-02 07:54
PROVIDERS: ADMIT Family Medicine; ATTEND Family Medicine
DX: J96.01 Acute respiratory failure with hypoxia; N17.9 Acute kidney failure, unspecified; C90.00 Multiple myeloma not having achieved remission; E11.65 Type 2 diabetes mellitus with hyperglycemia; I11.0 Hypertensive heart disease with heart failure; Z79.4 Long term (current) use of insulin; E03.9 Hypothyroidism, unspecified; I50.9 Heart failure, unspecified; E86.0 Dehydration; U07.1 COVID-19; J12.82 Pneumonia due to coronavirus disease 2019